=== PATIENT | male | born 1970 | race Caucasian/White ===

== ENCOUNTER 2025-01-01 14:24 | Emergency (ER) | payer SELFPAY ==
[2025-01-01 14:25] VITALS: BMI 42.9
[2025-01-01 14:27] VITALS: BP 102/78
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
[2025-01-01] MEDS: MOTRIN 600 MG PO (15:29)
[2025-01-01 15:32] VITALS: BP 128/75
== END 2025-01-01 15:44 | disposition home or self-care (01) ==
LOC: EMR 14:24
PROVIDERS: EMERGENCY PHYSICIAN Emergency Medicine
DX: T23.212A Burn of second degree of left thumb (nail), initial encounter (principal); W86.8XXA Exposure to other electric current, initial encounter; Y93.89 Activity, other specified; Y99.0 Civilian activity done for income or pay
CPT/HCPCS: 99282